=== PATIENT | male | born 1955 | race Caucasian/White ===

== ENCOUNTER 2017-05-06 12:29 | Inpatient (IN) | payer OTHER, SELFPAY ==
[2017-05-06] MEDS ORDERED: Succinylcholine Chloride 20 MG/ML 10 ml SYRINGE FS ONE (12:36)
[2017-05-06 12:45] LABS: #Eosinphils 0.2 thou/uL (0.0-0.7); #Lymphocytes 1.2 thou/uL (1.20-3.40); #Monocytes 1.2 thou/uL (0.11-0.59); %Basophils 0.1 % (0.0-1.0); %Eosinophils 1.7 % (0.0-10.0); %Lymphocytes 8.9 % (21.0-51.0); %Monocytes 8.9 % (0.0-10.0); Hematocrit 45.7 % (42.0-52.0); Red Blood Cell (RBC) Count 4.46 mill/uL (4.70-6.10); White Blood Cell (WBC) Count 13.7 thou/uL (4.8-10.8)
[2017-05-06 12:48] LABS: PTT 28.7 SEC (22.9-36.1); Prothrombin Time 13.6 SEC (12.0-14.7)
[2017-05-06 12:54] LABS: ALT (SGPT) 12 U/L (8-55); AST (SGOT) 14 U/L (5-34); Alkaline Phosphatase 116 U/L (40-150); Anion Gap 10 mmol/L (10-20); BUN (Urea Nitrogen) 29 mg/dL (8.4-25.7); Bilirubin, Total 0.5 mg/dL (0.2-1.2); Calc. Creatinine Clearance 0 mL/min (70-130); Calcium 9.2 mg/dL (7.8-10.44); Carbon Dioxide 23 mmol/L (23-31); Chloride 108 mmol/L (98-107); Estimated GFR-MDRD 55; Globulin 3.6 g/dL (2.4-3.5); Protein, Total 7.3 g/dL (5.8-8.1)
[2017-05-06 12:57] LABS: Oxyhemoglobin 90.1 % (94.0-97.0); Sodium 141 mmol/L (135-148)
[2017-05-06 13:00] LABS: Mode NC; Modified Allen's Test POSITIVE; Vent NO
[2017-05-06] MEDS ORDERED: Propofol 1,000 MG/100 ML VIAL IV ONE (13:09)
[2017-05-06 13:10] LABS: Acetaminophen Less than 6.0 mcg/mL (10.0-30.0); Salicylate Less than 8.0 mg/dL (15.0-30.0)
--- NOTE | 2017-05-06 13:15 | CT ---
NONCONTRAST CT OF THE BRAIN: (Stroke Protocol) INDICATION: Possible seizure activity, apnea, and altered mental status. COMPARISON: Prior exam dated 01/18/16. FINDINGS: There are remote areas of infarct involving the left parietal lobe and both occipital lobes, as well as the left cerebellar hemisphere. Remote lacunar infarcts are seen involving the right caudate head, as well as the right thalamus. There is chronic small vessel white matter ischemic change. Skull and extracranial soft tissues are unremarkable. No definite acute intracranial hemorrhage or hydrocephal us present. IMPRESSION: 1. No acute intracranial abnormality. 2. Chronic ischemic change. Findings called to Dr. Juarez at 1243 hours on 05/06/17. CODE CR. POS: [facility]
[2017-05-06 13:39] LABS: PTT 27.3 SEC (22.9-36.1)
[2017-05-06 13:40] LABS: Prothrombin Time 14.4 SEC (12.0-14.7)
[2017-05-06] MEDS ORDERED: Iopamidol 370 76% 150 ML VIAL FS ONE (13:56)
[2017-05-06] MEDS ORDERED: Fentanyl 100 MCG/2 ML VIAL ONE ×2 (14:09→16:13)
--- NOTE | 2017-05-06 14:14 | CT ---
CT ANGIOGRAM HEAD CT ANGIGORAM NECK CT PERFUSION OF HEAD: Date: 05/06/17 COMPARISON: None. HISTORY: Possible seizure activity, apnea, altered mental status, assess for intraarterial thrombus. TECHNIQUE: Serial axial CT imaging is obtained at 1.25 mm intervals from the lung apices through the vertex with IV contrast using a CT angiogram protocol. Coronal and sagittal 3D reformatted imaging of the head a nd neck obtained. CT perfusion maps of the head were provided as well. FINDINGS: CT ANGIOGRAM HEAD: There is extensive encephalomalacia in the left parietooccipital region, evidence of prior infarction or insult, present on a head CT performed 01/18/16. There is atherosclerotic plaque involving the distal aspect of bilateral vertebral arteries. There is a focal area of severe stenosis involving the distal left vertebral artery on coronal image 65 and a xial image 188. There is mild stenosis involving the distal aspect of the basilar artery just to the left of midline on axial image 201. The bilateral posterior cerebral arteries are patent. There is no saccular aneurysm or vascular occlu honorio seen involving the posterior circulation. There is mild atherosclerotic calcification of bilateral cavernous carotid arteries. The M1 segment, A1 segment, ICA bifurcation, and MCA bifurcation appears unremarkable bilaterally. Di stal MCA and LISA branches appear intact. No intra-arterial thrombus is noted centrally. CT ANGIOGRAM NECK: There are prominent subpleural and central lobular emphysematous changes noted within bilateral lung apices. There is mild mucosal thickening involving the alveolar recess of the maxillary sinus on the left. The parotid and submandibular glands appear within normal limits. The thyroid gland, cricoid cartilag e, hyoid bone, thyroid cartilage, level of glottis, epiglottis, preepiglottic fat, and bilateral tons illar pillars appear grossly unremarkable. No lymphadenopathy is noted within the neck. There is atherosclerotic calcification involving the aortic arch. Midline sternotomy wires are presen t. The origin of the innominate artery, right subclavian artery, right common carotid artery, left commo n carotid artery, and left subclavian artery demonstrate no hemodynamically significant stenosis. The re is no significant stenosis involving the origin of either vertebral artery. The right vertebral ar kavitha is dominant. There is no hemodynamically significant stenosis involving the common carotid artery on either side. Partially calcified plaque at the origin of the left internal carotid artery with no hemodynamically significant stenosis. There is a prominent ulcerated plaque present at the origin of the left internal carotid artery measu ring 1.5 cm in length. No associated hemodynamically significant stenosis is seen in this region. Osseous structures of the head and neck demonstrate no worrisome lytic or blastic bone lesions. There is significant multilevel degenerative change within the cervical spine. CT PERFUSION MAPS: CT perfusion maps are currently unavailable secondary to incomplete processing. Once they are availab le, an addendum will be placed on this report. IMPRESSION: 1. Evidence of prior left-sided parieto-occipital insult/infarction. 2. No central anterior arterial occlusion. 3. Severe stenosis involving distal left vertebral artery. 4. Mild area of proximal basilar artery stenosis. 5. No hemodynamically significant stenosis within the carotid system on either side. 6. Prominent ulcerated partially calcified but primarily soft plaque at origin of right internal car otid artery. 7. Severe emphysematous change involving imaged lung apices. 8. CT perfusion imaging currently not available. Addendum will be placed as soon as this is availabl e. Results discussed with Dr. Juarez at approximate 1335 hours on 05/06/17. CODE CR. POS: [facility]
[2017-05-06] MEDS ORDERED: Midazolam HCl 2 mg/2 ml Vial ONE (14:15)
[2017-05-06 14:24] LABS: Sodium 139 mmol/L (135-148)
[2017-05-06 14:25] LABS: Mechanical Tidal Volume 500 ml; Mode SIMV; Modified Allen's Test POSITIVE; Pressure Support 10 cmH2O; Vent YES
--- NOTE | 2017-05-06 14:51 | RAD ---
FRONTAL RADIOGRAPH ABDOMEN: DATE: 05/06/17. COMPARISON: None available. HISTORY: Altered mental status. FINDINGS: This study is a portable frontal chest radiograph centered over the upper abdomen. Thus, the chest i s only partially imaged on this exam. There is a nasogastric tube extending into the left upper quad rant, sideport overlying the region of the gastric body. Supine imaging limits assessment for free i ntraperitoneal air and small bowel obstruction. There is nonspecific hazy linear density in both himanshu g bases with blunting of the costophrenic angle on the right suggesting right pleural fluid. The magaly ent is status post midline sternotomy. There is a mechanical cardiac valve present. IMPRESSION: Incomplete assessment of the chest as above. Nasogastric tube extends into the left upper quadrant. POS: [facility]
[2017-05-06 15:05] LABS: Bilirubin Negative (Negative); Blood, Urine Negative (Negative); Glucose, Urine (Dipstick) Negative (Negative); Ketone, Urine Negative (Negative); Nitrite Negative (Negative); Protein, Urine (Dipstick) 30 mg/dL (Neg-Trace)
[2017-05-06 15:07] LABS: Bacteria/HPF None Seen HPF (None Seen); Hyaline Casts/LPF 0-3 HYALINE CAST LPF (0-3 Hyaline); RBC/HPF 0-3 HPF (0-3); Squamous Epithelial None Seen HPF (0-3); WBC/HPF 0-3 HPF (0-3)
[2017-05-06 15:15] LABS: Amphetamine Not Detected (NotDetected); Methadone Not Detected (NotDetected); Methamphetamine Not Detected (NotDetected)
[2017-05-06] MEDS ORDERED: Sodium Chloride 0.9% 1,000 ML IV SCH ×2 (16:28)
[2017-05-06] MEDS ORDERED: hydrALAZINE 20 MG/ML VIAL SLOW IVP PRN (16:28)
[2017-05-06] MEDS ORDERED: Ondansetron HCl/PF 4 MG/2 ML Vial IVP PRN (16:28)
[2017-05-06 16:29] LABS: Troponin I 0.014 ng/mL (< 0.028)
--- NOTE | 2017-05-06 16:30 | HP ---
CHIEF COMPLAINT: Altered mental state and possible questionable seizure disorder. HISTORY OF PRESENT ILLNESS: This is a 61-year-old pleasant gentleman, who was last seen normal by th e spouse at 11:00. When she came back, found him unresponsive except for painful stimuli. She ziegler d 911, who reported possible seizure-like activity and was given Versed by them. He was then airlift ed from home to our hospital for further evaluation and treatment. Initial evaluation, which include d arterial blood gas done at 1:00 p.m. showed that the pH was 7.19, CO2 was 68, and pO2 was 94. Ana use he was unresponsive, the ER physician intubated him. The patient right now is going to be admitt ed to the Critical Care Unit for further evaluation and treatment of the altered mental state and pos sible seizure-like disorder. The ER physician also spoke to the sister, who has power of family law attorney wh o is actually traveling, and got permission for the intubation. The patient's sister denies any feve r, chills, or any recent symptoms that the patient might have had. PAST MEDICAL HISTORY: All obtained from the previous notes. Patient was admitted out here in , at which point he was admitted for acute on chronic respiratory failure. 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 PAST SURGICAL HISTORY: Significant for CABG and PICC line placement. SOCIAL HISTORY: Not available right now. FAMILY HISTORY: No strong history of premature coronary artery disease, stroke, or cancer. ALLERGIES: ATIVAN and XANAX. MEDICATIONS: Please see MAR. REVIEW OF SYSTEMS: Cannot be obtained, as the patient is intubated. PHYSICAL EXAMINATION: VITAL SIGNS: Blood pressure is 149/78, pulse is 60, afebrile, right now breathing on the vent. HEENT: Atraumatic, normocephalic. Pupils are equally round and reactive to light. Mucous membranes are dry. NECK: No JVD. CHEST: Some coarse breath sounds heard. No wheezes appreciated. HEART: S1, S2 normal. Murmur appreciated. ABDOMEN: Soft. Bowel sounds are sluggish. EXTREMITIES: No cyanosis, clubbing, or edema. NEUROLOGIC: Cannot be evaluated at this point. IMAGING: Patient's CT scan of the head showed old left parietooccipital infarct. LABORATORY DATA: ABG done at 1:00 showed a pH of 7.19, CO2 of 68, and pO2 of 98.4 with an AV gradien t of 70.48. Troponin 0.01, potassium was 4.2, creatinine was 1.37, last known creatinine was normal. UA is pending. Chest x-ray is pending. WBC count is 13.7 and hemoglobin of 14.8. ASSESSMENT AND PLAN: 1. Altered mental state, possibly secondary to seizure-like disorder. We will consult Neurology. C T scan shows old cerebrovascular accident, no new infarct. We will do EEG and follow Neurology recom mendations. 2. Acute respiratory failure, possibly with hypercapnia, possibly secondary to chronic obstructive p ulmonary disease exacerbation. Patient has been intubated by the ER physician. We will consult inte nsivist and follow his recommendations. We will do DuoNeb, give him some steroids and antibiotics. 3. Possible seizure disorder. We will monitor the patient in this hospital stay and follow Neurolog y recommendations. 4. History of diastolic congestive heart failure. 5. History of aortic regurgitation. 6. History of cerebrovascular accident in the past with left-sided parietooccipital infarct on CT sc an. 7. Tobacco use. 8. History of paroxysmal atrial fibrillation. 9. Acute renal failure on chronic kidney disease. We will gently hydrate the patient. 10. Sequential compression devices for deep vein thrombosis prophylaxis. I will work with the consultants in further caring for the patient.
[2017-05-06 16:57] LABS: #Basophils 0.1 thou/uL (0.0-0.2); #Eosinphils 0.1 thou/uL (0.0-0.7); #Lymphocytes 0.7 thou/uL (1.20-3.40); #Monocytes 0.8 thou/uL (0.11-0.59); #Neutrophils 10.8 thou/uL (1.40-6.50); %Basophils 0.5 % (0.0-1.0); %Eosinophils 0.5 % (0.0-10.0); %Lymphocytes 5.7 % (21.0-51.0); %Monocytes 6.3 % (0.0-10.0); Hematocrit 41.5 % (42.0-52.0); Mean Platelet Volume 6.9 fL (7.4-10.4); Red Blood Cell (RBC) Count 4.05 mill/uL (4.70-6.10); White Blood Cell (WBC) Count 12.4 thou/uL (4.8-10.8)
[2017-05-06 17:21] LABS: ALT (SGPT) 10 U/L (8-55); AST (SGOT) 14 U/L (5-34); Alkaline Phosphatase 98 U/L (40-150); Anion Gap 11 mmol/L (10-20); BUN (Urea Nitrogen) 25 mg/dL (8.4-25.7); Bilirubin, Total 0.5 mg/dL (0.2-1.2); Calc. Creatinine Clearance 0 mL/min (70-130); Calcium 8.3 mg/dL (7.8-10.44); Carbon Dioxide 19 mmol/L (23-31); Chloride 109 mmol/L (98-107); Estimated GFR-MDRD 70; Protein, Total 6.2 g/dL (5.8-8.1)
--- NOTE | 2017-05-06 17:34 | RAD ---
1 VIEW CHEST: Date: 05/06/17 COMPARISON: 05/06/17. FINDINGS: Nasogastric tube is redemonstrated. Endotracheal tube terminates proximal to the wesley. Normal cardi ac silhouette. Lungs are hyperinflated. Chronic fibrotic changes are noted. Stable blunting of right costophrenic angle. No pneumothorax. No osseous abnormalities. IMPRESSION: Fibrotic change. POS: [facility]
[2017-05-06 17:40] VITALS: BMI 20.4
[2017-05-06] MEDS ORDERED: DISCONTINUE PREVIOUS NARCOTIC PAIN MEDICATIONS AND BENZODIAZEPINES FS SCH (18:09)
[2017-05-06] MEDS ORDERED: Fentanyl 20 MCG/ML 250 ML IVPB SCH (18:09)
[2017-05-06] MEDS ORDERED: Propofol 1,000 MG/100 ML VIAL IV PRN (18:09)
[2017-05-06] MEDS ORDERED: Morphine 4 MG/ML VIAL SLOW IVP PRN (18:15)
[2017-05-06] MEDS: cefTRIAXone\\ROCEPHIN 2 GM in Sodium Chloride 0.9% 100 ML IVPB SCH (18:40)
[2017-05-06] MEDS: Azithromycin 500 MG in Sodium Chloride 0.9% 250 ML 250 ML IVPB SCH (18:40)
[2017-05-06 18:56] LABS: Bilirubin Negative (Negative); Blood, Urine Negative (Negative); Glucose, Urine (Dipstick) Negative (Negative); Ketone, Urine Negative (Negative); Nitrite Negative (Negative); Protein, Urine (Dipstick) Negative (Neg-Trace)
[2017-05-06 18:58] LABS: Bacteria/HPF None Seen HPF (None Seen); Hyaline Casts/LPF 0-3 HYALINE CAST LPF (0-3 Hyaline); Squamous Epithelial None Seen HPF (0-3); WBC/HPF 0-3 HPF (0-3)
[2017-05-06 19:22] LABS: Troponin I 0.017 ng/mL (< 0.028)
[2017-05-06] MEDS ORDERED: Famotidine/PF 20 mg/2ml Vial SLOW IVP SCH (21:00)
[2017-05-07] MEDS ORDERED: Sodium Chloride 0.9% 1,000 ML IV SCH (03:56)
[2017-05-07 04:46] LABS: #Lymphocytes 0.5 thou/uL (1.20-3.40); #Monocytes 0.1 thou/uL (0.11-0.59); #Neutrophils 8.5 thou/uL (1.40-6.50); %Basophils 0.2 % (0.0-1.0); %Eosinophils 0.3 % (0.0-10.0); %Lymphocytes 5.2 % (21.0-51.0); %Monocytes 1.1 % (0.0-10.0); Hematocrit 41.3 % (42.0-52.0); Mean Platelet Volume 7.6 fL (7.4-10.4); Red Blood Cell (RBC) Count 4.09 mill/uL (4.70-6.10); White Blood Cell (WBC) Count 9.1 thou/uL (4.8-10.8)
[2017-05-07 05:16] LABS: Anion Gap 16 mmol/L (10-20); BUN (Urea Nitrogen) 26 mg/dL (8.4-25.7); Calc. Creatinine Clearance 67 mL/min (70-130); Calcium 9.1 mg/dL (7.8-10.44); Carbon Dioxide 17 mmol/L (23-31); Chloride 107 mmol/L (98-107); Estimated GFR-MDRD 75
--- NOTE | 2017-05-07 08:39 | CON ---
DATE OF CONSULTATION: 10/12/2016 SERVICE: Pulmonary Medicine. REASON FOR CONSULTATION: Respiratory failure. HISTORY OF PRESENT ILLNESS: The patient is a 61-year-old white male with past medical history signif icant for multiple admissions for respiratory issues and aggression. He presented to the hospital wi th altered mentation and possible seizure. He was last seen at 11:00 in the morning. When his came back into the room, he was found unresponsive except to painful stimuli. 911 was called. They reported some possible seizure-like activity. He was given some Versed. He was brought by airlift t o our hospital. Initial evaluation demonstrated acidosis. He was subsequently intubated. The patie nt was brought to the ICU to recover. Overnight, when he arrived in the ICU, he demonstrated extreme ly purposeful activity. He was flailing about. He was put down with a little bit of medication. Th is morning; however, we reassessed him. He woke up cool, calm and collected. We will put him on a s pontaneous breathing trial. He can provide me with additional elements of the presenting symptoms. PAST MEDICAL HISTORY: 1. Chronic diastolic heart failure. 2. Aortic regurgitation, severe. 3. History of MSSA bacteremia. 4. Chronic obstructive pulmonary disease, possible. 5. Alcohol abuse. 6. Tobacco abuse. 7. Deconditioning. 8. Paroxysmal atrial fibrillation. 9. Chronic systolic heart failure. PAST SURGICAL HISTORY: 1. Coronary artery bypass graft. 2. PICC line placement. 3. Endotracheal intubation, multiple. FAMILY HISTORY: Noncontributory. SOCIAL HISTORY: Positive for alcohol and tobacco. Drug use is unknown. Otherwise it is unknown. ALLERGIES: ATIVAN, XANAX. MEDICATIONS: List of his inpatient medications were reviewed. Multiple updates were made at this ti me. REVIEW OF SYSTEMS: This cannot be obtained as the patient is currently intubated and sedated. PHYSICAL EXAMINATION: VITAL SIGNS: Afebrile, pulse 59, blood pressure 142/76, respirations 18, saturation 100% on 21% FIO2 and PEEP of 5. GENERAL: The patient is intubated, none the influence of a little bit of sedation. HEENT: Normocephalic, atraumatic. Sclerae are white, conjunctivae pink. Oral and nasal mucosa is m oist without lesions. LUNGS: Excellent air entry. There is slightly prolonged expiratory phase. I do not appreciate much in the way of crackles anteriorly. Dependently, there are multiple crackles. HEART: Normal rate, regular. ABDOMEN: Soft, nontender, nondistended, bowel sounds positive. MUSCULOSKELETAL: No cyanosis or clubbing. There is no pitting in the bilateral lower extremities. NEUROLOGIC: Grossly nonfocal. He demonstrates good strength in the bilateral upper and lower extrem ities. His cough, breaths in ventilator. He attends and his pupils are equal, round, and reactive. He is following commands. LABORATORY DATA: WBC down trending to 12.4, hemoglobin 13.7, platelets 311,000. INR 1.1. PH 7.29, pCO2 of 48, pO2 93. This was on 40% FIO2 at that time. Basic metabolic profile, liver function stud ies are unremarkable. Cardiac enzymes negative x2. CK 80, lactate 1.0. Creatinine has improved. U rinalysis is completely unremarkable. Urine tox screen is negative for salicylates, acetaminophen, a lcohol. All illicit metabolites are negative. Respiratory culture is positive for a few gram positi ve cocci in pairs and chains, consistent with possible strep versus normal mac. IMAGIN. CT of the head and neck with brain perfusion demonstrates prior left-sided parietal occipital inf arction. Severe stenosis involving the distal left vertebral artery. No central anterior arterial o cclusion. No hemodynamically significant stenosis within the carotid system on either side. Promine nt ulcerated partially calcified with primarily soft plaque at the origin of the right ICA. Severe e mphysematous changes. 2. CT brain demonstrates remote infarct with no acute intracranial abnormality. 3. Chest x-ray demonstrates endotracheal tube in good position. There is an enteric catheter coursi ng below the level of the diaphragm. There is fibrotic lung changes throughout bilateral lung farmer . There is a little flattening of the diaphragm. There is perhaps a touch of volume overloaded in I CU as that the fissure is predominantly displayed. Small right-sided pleural effusion is evident. ASSESSMENT: 1. Metabolic encephalopathy. 2. Chronic obstructive pulmonary disease with possible acute exacerbation. 3. History of aortic regurgitation, status post aortic valve replacement in 11/2016. PLAN: We will continue our antibiotics and steroid medications. I will deescalate the steroids to p .o. only. I will put him on a spontaneous breathing trial. If he meets criteria, extubation will be considered. Pulmonary Critical Care will continue to follow, but if he remains stable from a respir atory standpoint, this afternoon he can be transitioned to the floor. Hopefully, we will be able to have a conversation with him to figure out exactly what happened.
[2017-05-07] MEDS ORDERED: FLU VACC QS2017-18 36 mo. & older 0.5 ML SYRINGE IM ONE (09:00)
[2017-05-07] MEDS: predniSONE 20 MG TAB PO SCH (09:03)
--- NOTE | 2017-05-07 16:35 | PDOC.PN ---
- Subjective Encounter Start Date: 05/07/17 Encounter Start Time: 16:34 pt extubated doing well no n/v no f/c - Objective MAR Reviewed: Yes Vital Signs & Weight: Vital Signs (12 hours) Temp Pulse Resp Pulse Ox 05/07/17 15:36 70 15 99 05/07/17 15:00 97.9 F 05/07/17 11:00 97.8 F 05/07/17 07:58 99 05/07/17 07:56 69 18 99 05/07/17 07:10 97.4 F L 58 L 13 100 05/07/17 07:00 97.4 F L Weight Weight 138 lb 7.205 oz Most Recent Monitor Data Heart Rate from ECG 64 NIBP 153/77 NIBP BP-Mean 90 Respiration from ECG 24 SpO2 98 I&O: 05/06/17 05/07/17 05/08/17 06:59 06:59 06:59 Intake Total 1306.9 1220 Output Total 680 955 Balance 626.9 265 Result Diagrams: 05/07/17 03:32 05/07/17 03:32 Phys Exam - Physical Examination Constitutional: NAD HEENT: PERRLA Neck: no JVD Respiratory: no wheezing Cardiovascular: no significant murmur Gastrointestinal: non-tender Musculoskeletal: pulses present Neurological: moves all 4 limbs Psychiatric: A&O x 3 Dx/Plan (1) Metabolic encephalopathy Code(s): G93.41 - METABOLIC ENCEPHALOPATHY Status: Acute (2) Tobacco use Code(s): Z72.0 - TOBACCO USE Status: Acute (3) Alcohol use Code(s): Z78.9 - OTHER SPECIFIED HEALTH STATUS Status: Acute (4) RENETTA (acute kidney injury) Code(s): N17.9 - ACUTE KIDNEY FAILURE, UNSPECIFIED Status: Acute (5) Acute hypoxemic respiratory failure Code(s): J96.01 - ACUTE RESPIRATORY FAILURE WITH HYPOXIA Status: Acute (6) COPD exacerbation Code(s): J44.1 - CHRONIC OBSTRUCTIVE PULMONARY DISEASE W (ACUTE) EXACERBATION Status: Acute Comment: improving.. (7) Seizure Code(s): R56.9 - UNSPECIFIED CONVULSIONS Status: Acute - Plan * f/u eeg * f/u labs * cont current mx
[2017-05-07] MEDS ORDERED: Folic Acid 1 MG TAB PO SCH (16:45)
[2017-05-07] MEDS ORDERED: levETIRAcetam 500 MG TAB PO SCH (16:45)
[2017-05-07] MEDS: cefTRIAXone\\ROCEPHIN 2 GM in Sodium Chloride 0.9% 100 ML IVPB SCH (17:01)
[2017-05-07] MEDS: Azithromycin 500 MG in Sodium Chloride 0.9% 250 ML 250 ML IVPB SCH (17:02)
--- NOTE | 2017-05-08 00:16 | CON ---
DATE OF CONSULTATION: 05/07/2017 CONSULTING PHYSICIAN: Hospitalist service. IMPRESSION: 1. Seizure secondary to a prior stroke. 2. 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 PLAN: 1. Keppra 1500 mg orally tonight. 2. Continue Keppra 500 mg b.i.d. 3. Office followup in a month. HISTORY OF PRESENT ILLNESS: Mr. Weinberg was brought in via ambulance after having a blackout at home. His girlfriend is not here to give me any details. He reports having some dizziness prior to lose consciousness. He did not regain any consciousness until he was in the emergency room. His CT revea led evidence of a prior stroke. His lab work was otherwise unremarkable. He has not had any further events like this. He denies any history of similar events. His exam shows an expressive aphasia. His cranial nerves seemed to be intact. Motor strength is equ al. He could stand and walk independently. I would be happy to follow up with him as an outpatient.
[2017-05-08 05:27] LABS: #Lymphocytes 0.8 thou/uL (1.20-3.40); #Neutrophils 12.8 thou/uL (1.40-6.50); %Basophils 0.1 % (0.0-1.0); %Eosinophils 0.3 % (0.0-10.0); %Lymphocytes 5.6 % (21.0-51.0); %Monocytes 6.8 % (0.0-10.0); Hematocrit 41.1 % (42.0-52.0); Mean Platelet Volume 7.1 fL (7.4-10.4); Red Blood Cell (RBC) Count 4.06 mill/uL (4.70-6.10); White Blood Cell (WBC) Count 14.6 thou/uL (4.8-10.8)
[2017-05-08 05:46] LABS: ALT (SGPT) 10 U/L (8-55); AST (SGOT) 11 U/L (5-34); Alkaline Phosphatase 89 U/L (40-150); Anion Gap 10 mmol/L (10-20); BUN (Urea Nitrogen) 26 mg/dL (8.4-25.7); Bilirubin, Total 0.3 mg/dL (0.2-1.2); Calc. Creatinine Clearance 66 mL/min (70-130); Calcium 8.7 mg/dL (7.8-10.44); Carbon Dioxide 24 mmol/L (23-31); Chloride 107 mmol/L (98-107); Estimated GFR-MDRD 75; Protein, Total 6.2 g/dL (5.8-8.1)
[2017-05-08] MEDS: predniSONE 20 MG TAB PO SCH (08:33)
[2017-05-08] MEDS ORDERED: Folic Acid 1 MG TAB PO SCH (09:00)
[2017-05-08] MEDS ORDERED: levETIRAcetam 500 MG TAB PO SCH (09:00)
--- NOTE | 2017-05-08 09:42 | EEG ---
Referring Physician: DR. ROSAS EEG # [id number] TEST TYPE: ROUTINE PORTABLE INPATIENT REPORT: AN EEG USING THE INTERNATIONAL TEN-TWENTY SYSTEM OF ELECTRODE PLACEMENT WAS PERFORMED. The waking background is an 8 hertz alpha frequency. The patient remained awake throughout the study. Photic stimulation was unremarkable. No epileptiform features were seen. IMPRESSION: THIS IS A NORMAL AWAKE EEG. Biometrics Specialist: FRANKIE Director Of Retention: ELGIN.[email or web address] ESCAMILLA
[2017-05-08 11:27] VITALS: TEMP 98.1
--- NOTE | 2017-05-08 13:05 | PDOC.PN ---
- Subjective Encounter Start Date: 05/08/17 Encounter Start Time: 13:02 Patient seen and examined. No new complaints. No overnight events - Objective MAR Reviewed: Yes Vital Signs & Weight: Vital Signs (12 hours) Temp Pulse Pulse Pulse Resp BP BP 05/08/17 11:15 98.1 F 71 16 05/08/17 10:40 72 75 150/84 H 161/87 H 05/08/17 08:00 97.9 F 60 20 05/08/17 07:12 97.9 F 60 20 05/08/17 07:07 79 20 05/08/17 04:10 97.6 F 61 16 BP Pulse Ox 05/08/17 11:15 139/75 94 L 05/08/17 10:40 05/08/17 08:00 93 L 05/08/17 07:12 159/84 H 93 L 05/08/17 07:07 98 05/08/17 04:10 138/62 93 L Weight Admit Weight 138 lb Weight 138 lb 7.205 oz Most Recent Monitor Data Heart Rate from ECG 69 NIBP 184/92 NIBP BP-Mean 116 Respiration from ECG 18 SpO2 98 I&O: 05/07/17 05/08/17 05/09/17 06:59 06:59 06:59 Intake Total 1306.9 2052 Output Total 680 1380 Balance 626.9 672 Result Diagrams: 05/08/17 04:59 05/08/17 04:59 Phys Exam - Physical Examination Constitutional: NAD HEENT: PERRLA Neck: no JVD Respiratory: no wheezing Cardiovascular: no significant murmur Gastrointestinal: non-tender Musculoskeletal: pulses present Neurological: moves all 4 limbs Psychiatric: A&O x 3 Dx/Plan (1) Metabolic encephalopathy Code(s): G93.41 - METABOLIC ENCEPHALOPATHY Status: Resolved (2) Tobacco use Code(s): Z72.0 - TOBACCO USE Status: Acute (3) Alcohol use Code(s): Z78.9 - OTHER SPECIFIED HEALTH STATUS Status: Acute (4) REENTTA (acute kidney injury) Code(s): N17.9 - ACUTE KIDNEY FAILURE, UNSPECIFIED Status: Acute (5) Acute hypoxemic respiratory failure Code(s): J96.01 - ACUTE RESPIRATORY FAILURE WITH HYPOXIA Status: Resolved (6) COPD exacerbation Code(s): J44.1 - CHRONIC OBSTRUCTIVE PULMONARY DISEASE W (ACUTE) EXACERBATION Status: Resolved Comment: improving.. (7) Seizure Code(s): R56.9 - UNSPECIFIED CONVULSIONS Status: Acute - Plan * doing good * d/c home on po steroids * f/u with neurology as out pt
--- NOTE | 2017-05-08 13:32 | DIS ---
DATE OF ADMISSION: 05/06/2017 DATE OF DISCHARGE: 05/08/2017 DISCHARGE DIAGNOSES: 1. Metabolic encephalopathy leading to respiratory insufficiency, status post needing intubation, is right now extubated. 2. Chronic obstructive pulmonary disease exacerbation, giving rise to hypercapnic respiratory failur e, seizure disorder, stable diastolic congestive heart failure, aortic regurgitation, history of left MCA stroke in the past with some expressive aphasia. 3. Acute renal failure on chronic kidney disease, resolved. 4. Tobacco use, counseled. DISCHARGE MEDICATIONS: Include all home medications plus Medrol Dosepak, doxycycline 100 mg p.o. b.i .d. for 10 days and Keppra 500 mg p.o. b.i.d. CONSULTANTS: The patient's consultants on the case are tea leaf reader and neurologist. BRIEF HOSPITAL COURSE: A 61-year-old pleasant gentleman came in unresponsive to the hospital, he was found to be in hypercapnic respiratory insufficiency. The patient was intubated by the ER physician . Of note, the EMS had noted some seizure-like activity too. He had EEG done this hospital stay, wh ich was normal. The patient did well with respect to the respiratory insufficiency and he was extuba tahira pretty soon. His COPD is under control. Right now, he is medically stable to be discharged on s teroids and p.o. antibiotics. Dr. Eastman evaluated the patient and put him on Keppra and asked him to follow up with him as an outpatient. Patient is right now medically stable to be discharged. He was asked to stop smoking and drinking alcohol. He is asked to come back to the emergency room in ca se symptoms recur. Total time for this discharge took 35 minutes.
[2017-05-08 13:40] VITALS: BP 184/100
--- NOTE | 2017-05-08 19:15 | PRG ---
DATE OF SERVICE: 05/08/2017 SERVICE: Pulmonary Medicine. INTERVAL HISTORY: The patient is doing absolutely abstaining from a respiratory standpoint. He graeme es any current nausea, vomiting or chest discomfort. If not honestly clear what is caused the patien t's spell. On the way, he is returned to his usual state of health. He has no cough or sputum produ ction. He denies any shortness of breath. PHYSICAL EXAMINATION: VITAL SIGNS: Afebrile, pulse 71, blood pressure 139/75, respirations 16, and saturation 98% on room air. GENERAL: Patient is awake, alert, in no acute distress. LUNGS: Excellent air entry. There is no prolonged expiratory phase, wheezing or crackles. HEART: Normal rate, regular. ABDOMEN: Soft, nontender, nondistended. Bowel sounds positive. MUSCULOSKELETAL: No cyanosis or clubbing. No pitting in the bilateral lower extremities. NEUROLOGIC: Grossly nonfocal. LABORATORY DATA: WBC 14.6, hemoglobin 13.4, platelets 323,000. INR 1.1. Basic metabolic profile, l iver function studies are unremarkable. TSH falls within normal limits. Prolactin level obtained se veral hours after the vent was 6.14. Urine drug screen was unremarkable. Respiratory culture and bl ood cultures x2, urine culture are all negative. ASSESSMENT: 1. Metabolic encephalopathy. 2. Spell. 3. Chronic obstructive pulmonary disease without current exacerbation. PLAN: The patient has essentially returned to his usual state of health. It is not clear what cause d him to have his spell. Either way, he has recovered essentially fully. The patient indicates he h as returned to his usual state of health. At this point, he has no acute inpatient requirement for P ulmonary or Critical Care opinion. Please call with additional questions or concerns.
== END 2017-05-08 14:30 | disposition home or self-care (01) | DRG 208 ==
LOC: ERS 12:29 → CCU 12:45 → 2SE 05-07 20:34
PROVIDERS: ADMIT Internal Medicine; ATTEND Internal Medicine
PROC: 5A1935Z Respiratory Ventilation, Less than 24 Consecutive Hours (ICD-10-PCS; principal; 2017-05-06)
PROC: 0BH17EZ Insertion of Endotracheal Airway into Trachea, Via Natural or Artificial Opening (ICD-10-PCS; 2017-05-06)
PROC: 0BP1XDZ Removal of Intraluminal Device from Trachea, External Approach (ICD-10-PCS; 2017-05-07)
DX: J96.22 Acute and chronic respiratory failure with hypercapnia (principal); G93.41 Metabolic encephalopathy; N17.9 Acute kidney failure, unspecified; E87.2 Acidosis; I50.32 Chronic diastolic (congestive) heart failure; J44.1 Chronic obstructive pulmonary disease with (acute) exacerbation; G40.909 Epilepsy, unspecified, not intractable, without status epilepticus; I11.0 Hypertensive heart disease with heart failure; J96.21 Acute and chronic respiratory failure with hypoxia; I65.02 Occlusion and stenosis of left vertebral artery; I35.1 Nonrheumatic aortic (valve) insufficiency; N18.9 Chronic kidney disease, unspecified; F17.210 Nicotine dependence, cigarettes, uncomplicated; I69.320 Aphasia following cerebral infarction; Z95.1 Presence of aortocoronary bypass graft; Z88.8 Allergy status to other drugs, medicaments and biological substances; Z86.19 Personal history of other infectious and parasitic diseases; Z95.2 Presence of prosthetic heart valve
CPT/HCPCS: 0042T; 31500; 36415; 36416; 51702; 70450; 70496; 70498; 71010; 80048; 80053; 80306; 80307; 81003; 81015; 82553; 82805; 83605; 84146; 84443; 84484; 85025; 85610; 85730; 86850; 86900; 86901; 87040; 87070; 87086; 87205; 90471; 90682; 93005; 94002; 94003; 94640; 95816; 95819; 96365; 96366; 96375; 96376; G0008; G8978-GP-CI; G8979-GP-CI; G8980-GP-CI; G8987-GO-CH; G8988-GO-CH; G8989-GO-CH; J0456; J0696; J2250; J2270; J2704; J2920; J3010; J7050; J7506; J7620; Q2036; S0028